=== PATIENT | male | born 1945 | race Caucasian/White ===

== ENCOUNTER 2016-05-31 16:47 | Inpatient (IN) | payer OTHER ==
[~2016-05-31] VITALS: Ht 177.8 cm; Wt 74.9 kg
[2016-05-31] VITALS (15 sets, daily range): BP systolic 80–123; BP diastolic 52–89
[2016-05-31] MEDS ORDERED: ALBUTEROL FS 2.5 MG/3 ML VIAL.NEB ONE (16:48)
[2016-05-31] MEDS ORDERED: IPRATROPIUM NEB FS 0.5 MG/2.5 ML AMPUL.NEB ONE (16:48)
[2016-05-31] MEDS ORDERED: IV NS 0.9% 1,000 ML ONE ×4 (17:02→23:45)
[2016-05-31] MEDS ORDERED: IV SET PRIMARY PUMP SET 1 EA INFUS.SET MC ONE ×4 (17:02→22:59)
[2016-05-31 17:27] LABS: ABG BASE EXCESS -8.1 mmol/L; ABG PCO2 51.8 mmHg (35.0-45.0); ABG PH 7.205 (7.350-7.450); ABG PO2 60.3 mmHg (75.0-100.0); ABG TOTAL HEMOGLOBIN 12.5 G/dL (13.5-18.0); ALLEN TEST Pass; AaDO2 223.4 mmHg; O2Hb 80.8 % (94.0-97.0)
[2016-05-31 17:31] LABS: INR 1.5 (0.87-1.13); PROTHROMBIN TIME 15.7 SECS (9.5-12.7)
[2016-05-31 17:34] LABS: ALANINE AMINOTRANSFERASE 22 U/L (12-78); ANION GAP 16 (5-14); ASPARTATE AMINOTRANSFERASE 169 U/L (15-37); BILIRUBIN,DIRECT 0.7 mg/dL (0.0-0.2); BILIRUBIN,TOTAL 1.1 mg/dL (0.2-1.0); CALCIUM, SERUM 8.1 mg/dL (8.5-10.1); CARBON DIOXIDE 22 mmol/L (21-32); CHLORIDE 103 mmol/L (98-107); CREATININE 1.5 mg/dL (0.6-1.3); GFR 46 mL/min (>60); GLUCOSE 92 mg/dL (74-106); INDIRECT BILIRUBIN 0.4 mg/dL (0.0-1.1); POTASSIUM 5.7 mmol/L (3.5-5.1); SODIUM SERUM 136 mmol/L (136-145); TOTAL PROTEIN, SERUM 5.6 g/dL (6.4-8.2); UREA NITROGEN, BLOOD 47 mg/dL (7-18)
[2016-05-31 17:36] LABS: ALBUMIN 1.3 g/dL (3.4-5.0); BASOPHILS # (AUTO) 0.2 /CMM (0.0-0.2); BASOPHILS % (AUTO) 0.9 % (0.0-2.0); DIFF TOTAL % 100 %; EOSINOPHILS % (AUTO) 0.1 % (0.0-6.0); HEMATOCRIT 40 % (39-51); HEMOGLOBIN 12.9 g/dL (13.5-17.5); LYMPHOCYTES # (AUTO) 0.9 /CMM (0.8-4.8); LYMPHOCYTES % (AUTO) 4.8 % (20.0-44.0); MEAN CORPUSCULAR HEMOGLOBIN 29 PG (26.0-33.0); MEAN CORPUSCULAR HGB CONC 33 g/dl (31.0-36.0); MEAN CORPUSCULAR VOLUME 89 fL (80-96); MONOCYTES # (AUTO) 0.4 /CMM (0.1-1.30); MONOCYTES % (AUTO) 2.1 % (2.0-12.0); NEUTROPHILS # (AUTO) 16.3 /CMM (1.8-8.9); NEUTROPHILS % (AUTO) 92.1 % (43.0-81.0); PLATELET COUNT (AUTO) 95 /CMM (150-450); RED BLOOD CELL COUNT(AUTO) 4.47 MIL/uL (4.5-6.0); TROPONIN I < 0.017 ng/mL (0.00-0.056); WHITE BLOOD COUNT (AUTO) 17.8 K/uL (4.3-11.0)
[2016-05-31 17:41] LABS: KETONES,URINE Trace (NEGATIVE); LEUKOCYTE ESTERASE ,URINE Large (NEGATIVE); PH,URINE 5.5 (5.0-8.0)
[2016-05-31 17:44] LABS: ADD UA MICROSCOPIC YES
[2016-05-31 18:00] LABS: LACTIC ACID 4.3 mmol/L (0.4-2.0)
[2016-05-31] MEDS ORDERED: PIPERACILLIN /TAZOBACTAM 3.375 G in IV D5W 50 ML IV ONE (18:00)
[2016-05-31] MEDS ORDERED: VANCOMYCIN 1 GM in IV D5W 250 ML IV ONE (18:00)
[2016-05-31] MEDS ORDERED: Calcium Gluconate 1GM/10ML 4.65 MEQ in IV D5W 50 ML IV ONE (18:00)
[2016-05-31 18:14] LABS: *LACTIC ACID REFLEX FLAG YES
[2016-05-31 18:18] LABS: ADD URINE CULTURE YES; WBC,URINE TOO NUMEROUS TO COUN /HPF (0-3)
[2016-05-31] MEDS ORDERED: PROPOFOL 100 ML IV ONE (18:27)
[2016-05-31] MEDS: NOREPINEPHRINE 8 MG in IV D5W 500 ML IV PRN (19:05)
[2016-05-31] MEDS ORDERED: IV NS 0.9% 1,000 ML BAG IV ONE (19:30)
[2016-05-31] MEDS ORDERED: PROPOFOL 100 ML IV PRN (19:30)
[2016-05-31 19:31] LABS: LYMPHOCYTES % (MANUAL) 4 % (16-48)
[2016-05-31] MEDS ORDERED: ROCURONIUM BROMIDE 50 MG/5 ML IV ONE (20:27)
[2016-05-31 20:53] LABS: ABG BASE EXCESS -8.9 mmol/L; ABG HCO3 18.3 mmol/L; ABG PCO2 44.4 mmHg (35.0-45.0); ABG PH 7.234 (7.350-7.450); ABG PO2 54.4 mmHg (75.0-100.0); ABG TOTAL HEMOGLOBIN 13.7 G/dL (13.5-18.0); ALLEN TEST Pass; AaDO2 324.6 mmHg; O2Hb 79.2 % (94.0-97.0)
[2016-05-31] MEDS ORDERED: ZOLPIDEM TARTRATE 5 MG TABLET PO PRN (21:00)
[2016-05-31] MEDS ORDERED: HYDROCODONE/APAP 5/325MG 1 EACH TABLET PO PRN (21:00)
[2016-05-31] MEDS ORDERED: Z GUARD REMEDY 2 OZ OINT TP PRN (21:00)
[2016-05-31] MEDS ORDERED: MAG HYDROX/AL HYDROX/SIMETH 30 ML UDC PO PRN (21:00)
[2016-05-31] MEDS ORDERED: MAGNESIUM HYDROXIDE 30 ML UDC PO PRN (21:00)
[2016-05-31] MEDS ORDERED: ACETAMINOPHEN 325 MG TABLET PO PRN (21:00)
[2016-05-31] MEDS ORDERED: ONDANSETRON HCL/PF 4 MG/2 ML VIAL IVP PRN (21:00)
[2016-05-31] MEDS ORDERED: FEE PK DOSING 1 MIN EA MC ONE (21:02)
[2016-05-31] MEDS: PANTOPRAZOLE 40 MG VIAL IV SCH (21:33)
[2016-05-31 21:53] LABS: BILIRUBIN,DIRECT 0.7 mg/dL (0.0-0.2); INDIRECT BILIRUBIN 0.3 mg/dL (0.0-1.1); TOTAL PROTEIN, SERUM 4.7 g/dL (6.4-8.2)
[2016-05-31 21:59] LABS: ALBUMIN 1.1 g/dL (3.4-5.0); LACTIC ACID 4.7 mmol/L (0.4-2.0)
[2016-05-31] MEDS ORDERED: IV NS 0.9% 1,000 ML IV PRN (22:30)
[2016-05-31] MEDS ORDERED: ALBUMIN 25% 12.5 GM/50 ML BOTTLE IV ONE (22:30)
[2016-05-31] MEDS ORDERED: ALBUMIN 25% 100 ML IV ONE (22:59)
[2016-05-31] MEDS ORDERED: ENOXAPARIN SODIUM 30 MG/0.3 ML DISP.SYRIN SQ SCH (23:30)
[2016-05-31] MEDS ORDERED: ENOXAPARIN SODIUM 30 MG/0.3 ML DISP.SYRIN ONE (23:41)
[2016-05-31] MEDS: PIPERACILLIN /TAZOBACTAM 3.375 G in IV D5W 50 ML IV SCH (23:45)
[2016-06-01] VITALS (88 sets, daily range): BP systolic 57–123; BP diastolic 33–93
[2016-06-01] MEDS ORDERED: IV NS 0.9% 250 ML IV ONE (00:11)
[2016-06-01] MEDS ORDERED: SECONDARY IV SET 1 EA INFUS.SET MC ONE ×4 (00:11→11:58)
[2016-06-01] MEDS ORDERED: IV SET PRIMARY PUMP SET 1 EA INFUS.SET MC ONE ×6 (00:11→23:58)
[2016-06-01] MEDS ORDERED: IV NS 0.9% 1,000 ML IV PRN ×2 (01:00)
[2016-06-01] MEDS ORDERED: IV NS 0.9% 1,000 ML ONE ×2 (01:42→23:01)
[2016-06-01] MEDS ORDERED: FUROSEMIDE 40 MG/4 ML VIAL ONE (02:38)
[2016-06-01] MEDS ORDERED: FUROSEMIDE 40 MG/4 ML VIAL IV SCH (03:00)
[2016-06-01] MEDS ORDERED: NOREPINEPHRINE 4 MG/4 ML AMPUL IV ONE ×2 (03:56→06:25)
[2016-06-01] MEDS: NOREPINEPHRINE 8 MG in IV D5W 500 ML IV PRN ×2 (04:03→06:35)
[2016-06-01 04:47] LABS: BASOPHILS % (AUTO) 0.1 % (0.0-2.0); DIFF TOTAL % 100 %; EOSINOPHILS % (AUTO) 0.1 % (0.0-6.0); HEMATOCRIT 37 % (39-51); HEMOGLOBIN 11.7 g/dL (13.5-17.5); LYMPHOCYTES # (AUTO) 0.6 /CMM (0.8-4.8); LYMPHOCYTES % (AUTO) 6.9 % (20.0-44.0); MEAN CORPUSCULAR HEMOGLOBIN 29 PG (26.0-33.0); MEAN CORPUSCULAR HGB CONC 32 g/dl (31.0-36.0); MEAN CORPUSCULAR VOLUME 91 fL (80-96); MONOCYTES % (AUTO) 0.6 % (2.0-12.0); NEUTROPHILS # (AUTO) 7.5 /CMM (1.8-8.9); NEUTROPHILS % (AUTO) 92.3 % (43.0-81.0); PLATELET COUNT (AUTO) 120 /CMM (150-450); RED BLOOD CELL COUNT(AUTO) 4.04 MIL/uL (4.5-6.0); WHITE BLOOD COUNT (AUTO) 8.1 K/uL (4.3-11.0)
[2016-06-01 05:10] LABS: CALCIUM, SERUM 6.9 mg/dL (8.5-10.1); CREATININE 1.4 mg/dL (0.6-1.3); PHOSPHORUS 5.2 mg/dL (2.5-4.9); POTASSIUM 5.2 mmol/L (3.5-5.1)
[2016-06-01] MEDS: PIPERACILLIN /TAZOBACTAM 3.375 G in IV D5W 50 ML IV SCH ×4 (05:22→23:59)
[2016-06-01] MEDS ORDERED: ENOXAPARIN SODIUM 30 MG/0.3 ML DISP.SYRIN SQ SCH (07:06)
[2016-06-01] MEDS ORDERED: NOREPINEPHRINE 16 MG in IV D5W 500 ML IV PRN (07:30)
[2016-06-01] MEDS: PHENYLEPHRINE 80 MG in IV NS 0.9% 250 ML IV PRN ×3 (07:35→20:38)
[2016-06-01] MEDS: NOREPINEPHRINE 16 MG in IV D5W 500 ML IV PRN ×3 (08:01→20:39)
[2016-06-01] MEDS ORDERED: Calcium Gluconate 1GM/10ML 9.3 MEQ in IV D5W 250 ML IV ONE (10:00)
[2016-06-01] MEDS: PROPOFOL 100 ML IV PRN (10:31)
[2016-06-01] MEDS ORDERED: IV NS 0.9% 1,000 ML BAG IV ONE (11:00)
[2016-06-01] MEDS: ALBUMIN 25% 25 GM in PREMIX 1 EA IV SCH ×2 (11:10→16:04)
[2016-06-01] MEDS: VANCOMYCIN 1 GM in IV D5W 250 ML IV SCH (12:06)
[2016-06-01] MEDS: Magnesium 1GM/D5W 100ML PREMIX 100 ML IV SCH ×2 (12:13→13:17)
[2016-06-01] MEDS ORDERED: IV NS 0.9% 500 ML IV ONE (16:21)
[2016-06-01] MEDS: LACTOBACILLUS RHAMNOSUS GG 1 EACH CAP.SPRINK PO SCH (16:37)
[2016-06-01 18:34] LABS: ABG BASE EXCESS -17.7 mmol/L; ABG HCO3 10.5 mmol/L; ABG PCO2 33.6 mmHg (35.0-45.0); ABG PH 7.114 (7.350-7.450); ABG PO2 36.9 mmHg (75.0-100.0); ABG TOTAL HEMOGLOBIN 10.9 G/dL (13.5-18.0); ALLEN TEST Pass; AaDO2 642.5 mmHg; O2Hb 63.7 % (94.0-97.0)
[2016-06-01] MEDS ORDERED: Sodium Bicarbonate 100 MEQ in IV D5W 1,000 ML IV PRN (19:00)
[2016-06-01] MEDS ORDERED: SODIUM BICARBONATE SYR 50 MEQ/50 ML DISP.SYRIN IV ONE (19:00)
[2016-06-01] MEDS: PANTOPRAZOLE 40 MG VIAL IV SCH (21:06)
[2016-06-01] MEDS: ENOXAPARIN SODIUM 40 MG/0.4 ML DISP.SYRIN SQ SCH (21:07)
[2016-06-01 22:47] LABS: ABG BASE EXCESS -15.3 mmol/L; ABG PCO2 22.6 mmHg (35.0-45.0); ABG PH 7.263 (7.350-7.450); ABG PO2 199.9 mmHg (75.0-100.0); ABG TOTAL HEMOGLOBIN 10.5 G/dL (13.5-18.0); AaDO2 490.5 mmHg; O2Hb 97.6 % (94.0-97.0)
[2016-06-01] MEDS ORDERED: IV NS 0.9% 1,000 ML IV ONE (23:30)
[2016-06-01] MEDS ORDERED: VASOPRESSIN INJ 20 UNIT/ML VIAL ONE (23:58)
[2016-06-01] MEDS ORDERED: IV D5W 500 ML IV ONE (23:58)
[2016-06-02] VITALS (79 sets, daily range): BP systolic 62–156; BP diastolic 29–126
[2016-06-02] MEDS ORDERED: VASOPRESSIN INJ 20 UNIT/ML VIAL ONE (00:01)
[2016-06-02] MEDS: VASOPRESSIN INJ 50 UNIT in IV D5W 497.5 ML IV PRN ×2 (00:14→17:44)
[2016-06-02] MEDS: PHENYLEPHRINE 80 MG in IV NS 0.9% 250 ML IV PRN ×5 (01:14→22:06)
[2016-06-02] MEDS ORDERED: IV NS 0.9% 250 ML IV ONE ×2 (03:45→17:28)
[2016-06-02] MEDS: NOREPINEPHRINE 16 MG in IV D5W 500 ML IV PRN ×3 (04:20→17:45)
[2016-06-02] MEDS ORDERED: EPINEPHRINE (1:1000) 1 MG/ML AMPUL ONE (04:26)
[2016-06-02] MEDS ORDERED: IV D5W 250 ML IV ONE (04:28)
[2016-06-02] MEDS: EPINEPHRINE (1:1000) 2 MG in IV D5W 250 ML IV PRN ×6 (04:45→23:45)
[2016-06-02 05:17] LABS: ALBUMIN 1.9 g/dL (3.4-5.0); CALCIUM, SERUM 6.6 mg/dL (8.5-10.1); CREATININE 1.6 mg/dL (0.6-1.3); POTASSIUM 4.9 mmol/L (3.5-5.1)
[2016-06-02] MEDS ORDERED: PHENYLEPHRINE 10 MG/ML VIAL ONE (05:45)
[2016-06-02 06:02] LABS: BASOPHILS % (AUTO) 0.1 % (0.0-2.0); DIFF TOTAL % 100 %; EOSINOPHILS # (AUTO) 0.1 /CMM (0.0-0.7); EOSINOPHILS % (AUTO) 0.6 % (0.0-6.0); HEMATOCRIT 30 % (39-51); HEMOGLOBIN 9.7 g/dL (13.5-17.5); LYMPHOCYTES # (AUTO) 0.5 /CMM (0.8-4.8); LYMPHOCYTES % (AUTO) 3.2 % (20.0-44.0); MEAN CORPUSCULAR HEMOGLOBIN 29 PG (26.0-33.0); MEAN CORPUSCULAR HGB CONC 32 g/dl (31.0-36.0); MEAN CORPUSCULAR VOLUME 90 fL (80-96); NEUTROPHILS # (AUTO) 15.1 /CMM (1.8-8.9); NEUTROPHILS % (AUTO) 96.1 % (43.0-81.0); RED BLOOD CELL COUNT(AUTO) 3.34 MIL/uL (4.5-6.0); WHITE BLOOD COUNT (AUTO) 15.8 K/uL (4.3-11.0)
[2016-06-02 06:05] LABS: PLATELET COUNT (AUTO) 46 /CMM (150-450)
[2016-06-02] MEDS: PIPERACILLIN /TAZOBACTAM 3.375 G in IV D5W 50 ML IV SCH ×4 (06:08→23:01)
[2016-06-02] MEDS: VANCOMYCIN 1 GM in IV D5W 250 ML IV SCH (06:09)
[2016-06-02 06:44] LABS: ANISOCYTOSIS 1+; BAND % (MANUAL) 29 % (0.0-5.0); EOSINOPHILS % (MANUAL) 1 % (0-4); HYPOCHROMASIA 1+; LYMPHOCYTES % (MANUAL) 4 % (16-48); PLATELET ESTIMATE DECREASED
[2016-06-02] MEDS: LACTOBACILLUS RHAMNOSUS GG 1 EACH CAP.SPRINK PO SCH ×2 (08:44→16:11)
[2016-06-02] MEDS ORDERED: IV SET PRIMARY PUMP SET 1 EA INFUS.SET MC ONE ×3 (08:59→20:48)
[2016-06-02] MEDS: PROPOFOL 100 ML IV PRN ×2 (09:00→17:13)
[2016-06-02] MEDS ORDERED: IV NS 0.9% 500 ML IV ONE (09:40)
[2016-06-02 10:35] LABS: ABG PCO2 23.2 mmHg (35.0-45.0); ABG PH 7.099 (7.350-7.450); ABG TOTAL HEMOGLOBIN 10.4 G/dL (13.5-18.0); AaDO2 401.2 mmHg; O2Hb 89.8 % (94.0-97.0)
[2016-06-02] MEDS ORDERED: Sodium Bicarbonate 150 MEQ in IV D5W 1,000 ML IV PRN (11:28)
[2016-06-02] MEDS ORDERED: FUROSEMIDE 100 MG/10 ML VIAL IV ONE (12:00)
[2016-06-02] MEDS: ALBUMIN 25% 25 GM in PREMIX 1 EA IV SCH ×3 (12:13→23:45)
[2016-06-02] MEDS ORDERED: SECONDARY IV SET 1 EA INFUS.SET MC ONE ×2 (12:56→17:13)
[2016-06-02] MEDS ORDERED: LEVOFLOXACIN 750 MG /D5W 150ML 750 MG in PREMIX 1 EA IV SCH (13:00)
[2016-06-02] MEDS ORDERED: SODIUM BICARBONATE SYR 50 MEQ/50 ML DISP.SYRIN IV ONE (13:30)
[2016-06-02 17:05] LABS: ABG BASE EXCESS -4.3 mmol/L; ABG PCO2 28.6 mmHg (35.0-45.0); ABG PH 7.441 (7.350-7.450); ABG PO2 72.4 mmHg (75.0-100.0); ABG TOTAL HEMOGLOBIN 8.7 G/dL (13.5-18.0); O2Hb 92.8 % (94.0-97.0)
[2016-06-02 21:01] LABS: LACTIC ACID 14.4 mmol/L (0.4-2.0)
[2016-06-02 21:34] LABS: *LACTIC ACID REFLEX FLAG YES
[2016-06-02] MEDS: PANTOPRAZOLE 40 MG VIAL IV SCH (22:22)
[2016-06-02] MEDS: ENOXAPARIN SODIUM 40 MG/0.4 ML DISP.SYRIN SQ SCH (22:23)
[2016-06-02 22:47] LABS: ABG BASE EXCESS -12.4 mmol/L; ABG PCO2 27.9 mmHg (35.0-45.0); ABG PH 7.285 (7.350-7.450); ABG PO2 98.5 mmHg (75.0-100.0); ABG TOTAL HEMOGLOBIN 8.9 G/dL (13.5-18.0); AaDO2 586.6 mmHg; O2Hb 94.7 % (94.0-97.0)
[2016-06-02] MEDS: ALBUMIN 25% 25 GM in PREMIX 1 EA IV PRN ×2 (22:58→23:39)
[2016-06-02 23:40] LABS: BILIRUBIN,DIRECT 1.3 mg/dL (0.0-0.2); BILIRUBIN,TOTAL 2.7 mg/dL (0.2-1.0)
[2016-06-03] VITALS (19 sets, daily range): BP systolic 36–88; BP diastolic 18–56
[2016-06-03] MEDS ORDERED: Sodium Bicarbonate 100 MEQ in IV D5W 1,000 ML IV SCH ×2
[2016-06-03] MEDS: VANCOMYCIN 1 GM in IV D5W 250 ML IV SCH (00:04)
[2016-06-03] MEDS: NOREPINEPHRINE 16 MG in IV D5W 500 ML IV PRN (00:12)
[2016-06-03] MEDS: PHENYLEPHRINE 80 MG in IV NS 0.9% 250 ML IV PRN (02:33)
[2016-06-03] MEDS: EPINEPHRINE (1:1000) 2 MG in IV D5W 250 ML IV PRN (03:03)
[2016-06-03] MEDS ORDERED: IV SET PRIMARY PUMP SET 1 EA INFUS.SET MC ONE (04:06)
[2016-06-03 05:02] LABS: BASOPHILS % (AUTO) 0.1 % (0.0-2.0); DIFF TOTAL % 100 %; EOSINOPHILS % (AUTO) 0.1 % (0.0-6.0); HEMATOCRIT 22 % (39-51); HEMOGLOBIN 7.3 g/dL (13.5-17.5); LYMPHOCYTES # (AUTO) 0.5 /CMM (0.8-4.8); LYMPHOCYTES % (AUTO) 2.4 % (20.0-44.0); MEAN CORPUSCULAR HEMOGLOBIN 30 PG (26.0-33.0); MEAN CORPUSCULAR HGB CONC 33 g/dl (31.0-36.0); MEAN CORPUSCULAR VOLUME 90 fL (80-96); NEUTROPHILS # (AUTO) 18.3 /CMM (1.8-8.9); NEUTROPHILS % (AUTO) 97.4 % (43.0-81.0); RED BLOOD CELL COUNT(AUTO) 2.47 MIL/uL (4.5-6.0); WHITE BLOOD COUNT (AUTO) 18.8 K/uL (4.3-11.0)
[2016-06-03 05:13] LABS: CALCIUM, SERUM 6.7 mg/dL (8.5-10.1); CREATININE 1.4 mg/dL (0.6-1.3); POTASSIUM 3.7 mmol/L (3.5-5.1)
[2016-06-03] MEDS: ALBUMIN 25% 25 GM in PREMIX 1 EA IV SCH (05:16)
[2016-06-03 05:24] LABS: PLATELET COUNT (AUTO) 16 /CMM (150-450)
[2016-06-03] MEDS: PIPERACILLIN /TAZOBACTAM 3.375 G in IV D5W 50 ML IV SCH (05:49)
[2016-06-03 06:09] LABS: ANISOCYTOSIS 2+; BAND % (MANUAL) 23 % (0.0-5.0); BASOPHILS % (MANUAL) 0 % (0.0-2.0); EOSINOPHILS % (MANUAL) 0 % (0-4); HYPOCHROMASIA 1+; LYMPHOCYTES % (MANUAL) 9 % (16-48); PLATELET ESTIMATE DECREASED
[2016-06-03 06:10] LABS: BURR CELLS 1+
[2016-06-03] MEDS ORDERED: Sodium Bicarbonate 50 MEQ/50 ML VIAL IV ONE (06:45)
[2016-06-03] MEDS ORDERED: CALCIUM CHLORIDE 1,000 MG/10 ML DISP.SYRIN IV ONE (06:45)
[2016-06-03] MEDS ORDERED: FEE EMEERGENCY 1 MIN EA MC ONE (06:45)
[2016-06-03] MEDS ORDERED: EPINEPHRINE (1:10,000) SYRINGE 1 MG/10 ML DISP.SYRIN IVP ONE (06:45)
[2016-06-03] MEDS ORDERED: MEROPENEM 1 G in IV NS 0.9% 100 ML IV SCH (09:00)
[2016-06-03 12:25] LABS: HEPATITIS C VIRUS AB <0.1 s/co ratio (0.0-0.9)
[2016-06-04] MEDS ORDERED: LEVOFLOXACIN 500 MG /D5W 100ML 500 MG in PREMIX 1 EA IV SCH (13:00)
== END 2016-06-03 06:46 | disposition expired | DRG 871 ==
LOC: ER 16:48 → ICU 20:18
PROVIDERS: ADMIT Family Medicine; ATTEND Family Medicine
PROC: 5A1945Z Respiratory Ventilation, 24-96 Consecutive Hours (ICD-10-PCS; principal; 2016-05-31)
PROC: 0BH18EZ Insertion of Endotracheal Airway into Trachea, Via Natural or Artificial Opening Endoscopic (ICD-10-PCS; 2016-05-31)
PROC: 05HM33Z Insertion of Infusion Device into Right Internal Jugular Vein, Percutaneous Approach (ICD-10-PCS; 2016-05-31)
PROC: B543ZZA Ultrasonography of Right Jugular Veins, Guidance (ICD-10-PCS; 2016-05-31)
PROC: 06HN33Z Insertion of Infusion Device into Left Femoral Vein, Percutaneous Approach (ICD-10-PCS; 2016-06-02)
PROC: B54CZZA Ultrasonography of Left Lower Extremity Veins, Guidance (ICD-10-PCS; 2016-06-02)
PROC: 5A1D00Z (ICD-10-PCS; 2016-06-02)
PROC: 04HK33Z Insertion of Infusion Device into Right Femoral Artery, Percutaneous Approach (ICD-10-PCS; 2016-06-02)
PROC: 5A12012 Performance of Cardiac Output, Single, Manual (ICD-10-PCS; 2016-06-03)
DX: A41.9 Sepsis, unspecified organism (principal); R65.21 Severe sepsis with septic shock; N17.0 Acute kidney failure with tubular necrosis; E43 Unspecified severe protein-calorie malnutrition; R53.2 Functional quadriplegia; G93.40 Encephalopathy, unspecified; J69.0 Pneumonitis due to inhalation of food and vomit; J96.01 Acute respiratory failure with hypoxia; J96.02 Acute respiratory failure with hypercapnia; I50.41 Acute combined systolic (congestive) and diastolic (congestive) heart failure; N39.0 Urinary tract infection, site not specified; J98.11 Atelectasis; E87.1 Hypo-osmolality and hyponatremia; E87.2 Acidosis; I13.0 Hypertensive heart and chronic kidney disease with heart failure and stage 1 through stage 4 chronic kidney disease, or unspecified chronic kidney disease; Z74.01 Bed confinement status; Z86.73 Personal history of transient ischemic attack (TIA), and cerebral infarction without residual deficits; B96.20 Unspecified Escherichia coli [E. coli] as the cause of diseases classified elsewhere; E11.22 Type 2 diabetes mellitus with diabetic chronic kidney disease; I44.30 Unspecified atrioventricular block; N18.9 Chronic kidney disease, unspecified; E87.5 Hyperkalemia; D64.9 Anemia, unspecified; E88.09 Other disorders of plasma-protein metabolism, not elsewhere classified; D69.6 Thrombocytopenia, unspecified; E83.51 Hypocalcemia
CPT/HCPCS: 31720; 36415; 36600; 71010-TC; 76770-TC; 80048-TC; 80061-TC; 80074; 80076-TC; 80202-TC; 81000-TC; 82040-TC; 82247-TC; 82248-TC; 82550-TC; 82803-TC; 83605-TC; 83735-TC; 83880; 84100-TC; 84132-TC; 84484-TC; 85025-TC; 85730-TC; 86709; 86713; 87040-TC; 87070-TC; 87081-TC; 87086-TC; 87186-TC; 87400; 90935-TC; 93307-TC; 94002-TC; 94003-TC; 99082-TC; A4216; A4606; A6402; A6403; C1750; C1751; C9113; J0171; J0610; J1650; J1940; J1956; J2185; J2370; J2543; J3370; J3475; J3490; J7030; J7040; J7050; J7060; J7070; P9047; Z7610